=== PATIENT | male | born 2000 ===

== ENCOUNTER 2023-01-05 21:29 | Emergency (ER) | payer SELFPAY ==
[2023-01-05 21:23] VITALS: BP 125/91; PULSE 93; RESP 20; TEMP 36.6; O2SAT 99
--- NOTE | 2023-01-05 21:24 | W.ED.GENAD ---
Discharge Plan Disposition Patient Disposition: Home Discharge Details Clinical Impression: Acute respiratory failure with hypoxia, Opiate overdose Primary Care Provider: Unknown,Unknown ED Provider: Sharan Fields Discharge Instructions Additional Instructions: You were seen in the emergency department following your opiate overdose. You were offered treatment with buprenorphine which you declined. Please call a development coach in the [phone]. Please return to the emergency department if you develop any fevers chills nausea or vomiting. Discharge Data Discharge Date/Time-TO BE ENTERED AT DEPARTURE: 01/06/23 00:46 Medical Decision Making This is an overall well-appearing normothermic and not tachycardic nor hypotensive 22-year-old male status post heroin overdose IV earlier this evening. Patient had transient apnea but now has room air saturations of 99%. His GCS is 15. We will observe patient in the emergency department. I have asked health nuclear unit operator Teagan to have a development coach which patient requested. Will defer plain films given normal room air saturation at this point time. Will observe patient in the ED on end-tidal CO2. 10:45 PM Patient did not require any repeat naloxone dosing in the ED. He was observed for an hour and a half and discharged. Unfortunately a development coach was not available. I passed along health development coach phone number for the patient. Patient transiently became nauseous for which I gave him ondansetron. He also received a liter of IV fluids. At the time of discharge his vital signs were reassuring. HPI General Date/Time Provider Initiated Documentation: 01/05/23 21:30. HPI Narrative: This is a previously healthy 22-year-old male who uses intravenous opiates arriving via paramedics following an overdose. Patient was reportedly found in a strangers apartment. He was reportedly apneic. Fire department noted that his initial oxygen saturation was 40% on room air. He received 4 mg of intranasal naloxone across 2 doses. He had 1 episode of emesis prior to coming to the emergency department. He does not routinely drink alcohol and he takes no routine medications. 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 He reportedly having been clean for 2 weeks. He is seeking a development coach. Related Data Allergies Allergy/AdvReac Type Severity Reaction Status Date / Time No Known Allergies Allergy Unverified 01/05/23 21:30 [facility] All Active Problems (Updated 08/05/23 @ 21:32 by Sharan Fields MD) Acute respiratory failure with hypoxia (Acute) Opiate overdose (Acute) Social History Smoking/Tobacco Use Status: Current every day Tobacco Type: cigarettes Years smoked: 11 Smoking risk assessment performed?: Yes Alcohol Intake: current Alcohol Intake frequency: holidays/special occasions only Alcohol type: beer and hard liquor Drug use: Daily Substance use type: marijuana, crack/cocaine and heroin Do you feel safe at home: Yes Do you feel safe in your relationship?: Yes Exam Narrative Exam Narrative: General: Disheveled-appearing in no acute distress speaking in complete sentences. Cooperative Head: Normocephalic, atraumatic. Eye: Extraocular eye movements intact. No conjunctival injection. No scleral icterus. Ear, nose, mouth, throat: Grossly normal inspection. Normal voice, handling secretions normally. Neck: Trachea midline. Cardiovascular: Well-perfused distal extremities. Regular rate and rhythm Respiratory: Nonlabored respiration. Clear lungs bilaterally. Gastrointestinal: Nondistended abdomen. Musculoskeletal: No edema. Moving all 4 extremities spontaneously. Track castro right upper extremity in the AC Skin: Normal for age and race, grossly normal temperature and turgor. No acute rash. Neurologic: Alert and appropriate, no apparent acute deficits. Psychiatric: Mood and manner are appropriate. Grooming and personal hygiene are appropriate. Critical Care Time Critical Care Time Critical Care Time: Yes Total Critical Care Time: 30 Attestation: Acute respiratory failure hypoxia
[2023-01-05 21:30] VITALS: BP 122/79; PULSE 86
[2023-01-05 23:00] VITALS: BP 119/73; PULSE 92
[2023-01-05] MEDS: Normal Saline 1,000 ML 1000 ML IV (23:20)
[2023-01-05] MEDS: Ondansetron 4 MG/2 ML VIAL IVP (23:25)
[2023-01-05 23:30] VITALS: BP 112/74; PULSE 89
[2023-01-06] VITALS: BP 116/72; PULSE 85
[2023-01-06 00:15] VITALS: BP 113/64; PULSE 79; RESP 16
[2023-01-06 00:45] VITALS: BP 113/64; PULSE 79; RESP 16; TEMP 36.6; O2SAT 99
== END 2023-01-06 00:46 | disposition home or self-care (01) ==
PROVIDERS: Emergency Provider Emergency Medicine
DX: J96.01 Acute respiratory failure with hypoxia (principal); T40.1X1A Poisoning by heroin, accidental (unintentional), initial encounter; R41.82 Altered mental status, unspecified; F17.200 Nicotine dependence, unspecified, uncomplicated
CPT/HCPCS: 96374; 99291; J2405